=== PATIENT | female | born 1990 | race Caucasian/White ===

== ENCOUNTER 2018-01-28 20:09 | Emergency (ER) | payer OTHER ==
[2018-01-28] MEDS ORDERED: Bacitracin Zinc 1 Packet ONE (21:05)
[2018-01-28] MEDS ORDERED: Adacel (T-DAP) 0.5 ML VIAL ONE (21:05)
== END 2018-01-28 21:05 | disposition home or self-care (01) ==
LOC: ERS 20:09
DX: S81.012A Laceration without foreign body, left knee, initial encounter (principal); Z23 Encounter for immunization; W10.9XXA Fall (on) (from) unspecified stairs and steps, initial encounter
CPT/HCPCS: 12001; 90471; 90715